=== PATIENT | male | born 1975 | race Caucasian/White ===

== ENCOUNTER 2019-09-24 22:04 | Emergency (ER) | payer BC ==
[~2019-09-24] VITALS: Ht 172.7 cm; Wt 86.2 kg
[2019-09-24 22:14] VITALS: Ht 172.7 cm; Wt 86.2 kg
[2019-09-25 00:39] LABS: microscopic required? NO
[2019-09-25 00:58] LABS: BASOPHIL % 0.3 % (0-2); RED CELL DISTRIBUTION WIDTH 13.5 % (11.5-14.5)
[2019-09-25 01:02] LABS: urine erythrocyte NEGATIVE (NEGATIVE)
[2019-09-25 01:03] LABS: PLATELET COUNT 99 x10^3mcL (130-400)
[2019-09-25 01:11] LABS: CALCIUM 7.9 mg/dL (8.5-10.1); CARBON DIOXIDE 27.8 mmol/L (21-32); CHLORIDE SERUM 103 mmol/L (98-107); GFR1 > 60 mL/min; GLUCOSE SERUM 98 mg/dL (74-106); POTASSIUM SERUM 3.8 mmol/L (3.5-5.1); SODIUM SERUM 138 mmol/L (136-145)
[2019-09-25 01:15] LABS: ALKALINE PHOSPHATASE 56 U/L (46-116); ALT/SGPT 88 U/L (16-63); AST/SGOT 56 U/L (15-37); BILIRUBIN TOTAL 0.46 mg/dL (0.20-1.00); TOTAL PROTEIN, SERUM 6.6 g/dL (6.4-8.2)
[2019-09-25 01:17] LABS: ALBUMIN 3.2 g/dL (3.4-5.0)
[2019-09-25 03:54] VITALS: BP 110/76
== END 2019-09-25 03:54 | disposition home or self-care (01) ==
LOC: ED 22:04
PROVIDERS: Emergency Medicine
DX: U07.1 COVID-19 (principal); J12.89 Other viral pneumonia; M54.9 Dorsalgia, unspecified
CPT/HCPCS: J3411; J7030; Q0092; U0003-CS